=== PATIENT | male | born 1980 | race Caucasian/White ===

== ENCOUNTER 2016-12-04 05:09 | Emergency (ER) | payer SELFPAY ==
[~2016-12-04 05:09] MED LIST: ACULAR10 ML; BACTRIM 400-801 TA1 PO; BACTRIM DS TABL1 TA2 PO; BUSPAR PO; FLEXERIL PO; IBUPROFEN PO; ILOTYCIN1 GM; KEFLEX PO; KEFLEX500 M2 PO; LORCET HD CAPSU1 CA1 PO; NO MEDICATIONS; ORUDIS75 M1 DOB; PREVACID PO; VICODIN 5/500 T1 TAB PO; [UNRECOGNIZED DRUG - REMARK]
== END 2016-12-04 05:41 | disposition home or self-care (01) ==
LOC: SED 05:09
DX: L02.31 Cutaneous abscess of buttock (principal); L02.414 Cutaneous abscess of left upper limb
CPT/HCPCS: 10060; 99283

== ENCOUNTER 2016-12-06 01:51 | Emergency (ER) | payer SELFPAY | END 2016-12-06 02:12 | disposition home or self-care (01) | LOC: SED 01:51 | DX: L02.31 Cutaneous abscess of buttock (principal); L03.317 Cellulitis of buttock; F17.210 Nicotine dependence, cigarettes, uncomplicated; Z88.0 Allergy status to penicillin | CPT/HCPCS: 10060; 87070; 87077; 87186; 87205; 99283 ==